=== PATIENT | female | born 1950 | race Caucasian/White ===

== ENCOUNTER 2017-04-19 12:23 | Inpatient (IN) | payer BC, OTHER ==
[~2017-04-19] VITALS: Ht 177.8 cm; Wt 86.0 kg
[2017-04-19] VITALS (7 sets, daily range): BP systolic 98–122; BP diastolic 69–86
[~2017-04-19 12:23] MED LIST: ASPIR-LOW81 MG PO; ATORVASTATIN CA80 MG PO; Aspirin PO; Ativan PO; BACLOFEN10 MG PO; CLONAZEPAM1 MG PO; CLONAZEPAM2 MG PO; CYMBALTA60 MG PO; Cymbalta PO; DILAUDID2 MG PO; DOXEPIN HCL25 MG PO; ECOTRIN325 MG PO; KLONOPIN1 MG PO; LATANOPROST2.5 ML BOTH EYES; LIPITOR80 MG PO; LYRICA PO; LYRICA100 MG PO; LYRICA200 MG PO; Levothroid,Synthroid PO; Lipitor PO; Lovaza PO; METHADONE10 MG PO; METOPROLOL SUCC50 MG PO; Methadone HCl PO; Neurontin PO; PLAVIX75 MG PO; Plavix PO; SINEQUAN25 MG PO; SINEQUAN50 MG PO; SYNTHROID125 MCG PO; SYNTHROID150 MCG PO; TOPROL XL50 MG PO; Toprol XL PO; VITAMIN D2000 UNI1 PO; VITAMIN E400 UNIT PO; Vancomycin Pulse Dos IV; WELLBUTRIN100 MG PO; Wellbutrin PO; ZANAFLEX4 MG PO
[2017-04-19 12:36] LABS: CREATININE 1.2 mg/dL (0.6-1.3); POTASSIUM 5.3 mEq/L (3.7-5.4)
[2017-04-19 12:59] LABS: BASE EXCESS 1.4 mEq/L (-3 to +3); BICARBONATE 24.7 mEq/L (22-26); CARBOXY HGB 1.4 % (0-5); METHEMOGLOBIN 1.4 % (0-1.5); PO2 400 mm Hg (80-100)
[2017-04-19 13:00] LABS: PCO2 34 mm Hg (35-45); pH 7.47 (7.35-7.45)
[2017-04-19 13:01] LABS: COMMENTS - BLOOD GASES C+A+; DEVICE VENT; FI02 100 %; MECHANICAL RATE 18 resp/min; MODE AC; PEEP 8 CM/H20; SITE RR; TIDAL VOLUME 500 ML; TOTAL RESP RATE 18 resp/min
[2017-04-19 13:25] LABS: TROP-I INTERPRETATION POSITIVE; TROPONIN-I 1.43 ng/mL (0.0-0.30)
[2017-04-19 13:26] LABS: EOSINOPHIL (%) 0.2 % (0-5); HEMATOCRIT 38.8 % (36.0-46.0); IMMATURE GRANULOCYTE (%) 0.3 % (0.0-0.7); INSTRUMENT ABS NEUTROPHIL CT 10.9 K/uL; LYMPHOCYTE COUNT 0.7 K/uL (1.0-2.8); MCH 27.7 PG (29.0-34.0); MCV 86.6 FL (83-99); MONOCYTE (%) 4.7 % (3-12); MONOCYTE COUNT 0.6 K/uL (0-0.8); NEUTROPHIL COUNT 10.9 K/uL (1.8-6.4); RED BLOOD COUNT 4.48 M/uL (3.80-5.20); WHITE BLOOD COUNT 12.2 K/uL (4.1-10.2)
[2017-04-19 13:33] LABS: INTER. NORMALIZED RATIO 1.1
[2017-04-19 13:35] LABS: PTT 23.3 SEC (25-37)
[2017-04-19 13:37] LABS: CHLORIDE 104 mEq/L (99-109); POTASSIUM 3.6 mEq/L (3.7-5.4); SODIUM 139 mEq/L (136-147)
[2017-04-19 13:39] LABS: GLUCOSE 104 mg/dL (70-99)
[2017-04-19 13:40] LABS: ANION GAP 12 MEQ/L (2-14)
[2017-04-19 13:41] LABS: TOTAL BILIRUBIN 0.5 mg/dL (0.0-1.0)
[2017-04-19 13:43] LABS: ALKALINE PHOSPHATASE 158 IU/L (3-129); GFR ESTIMATE (CALCULATED) 53 mL/min/
[2017-04-19 13:44] LABS: UREA NITROGEN (BUN) 16 mg/dL (9-23)
[2017-04-19 13:46] LABS: CREATINE KINASE 443 IU/L (1-294); TOTAL CK 443 IU/L (1-294)
[2017-04-19 13:52] LABS: CK-MB 30.3 ng/mL (0.0-4.9)
[2017-04-19 14:20] LABS: MEAN PLAT.VOLUME 8.6 uM^3 (9.5-12.4); PLAT.SUFFICIENCY ADEQUATE; PLATELET COUNT 199 K/uL (156-360)
[2017-04-19] MEDS ORDERED: NITROSTAT0.4 MG SL (15:09)
[2017-04-19] MEDS ORDERED: ENDOCET 5-3251 EACH PO (15:09)
[2017-04-19] MEDS ORDERED: DULCOLAX5 MG PO (15:16)
[2017-04-19 17:35] LABS: METH RESISTANT S AUREUS PCR NEGATIVE (NEGATIVE)
[2017-04-19 18:18] LABS: PROBE CHECK PASS; SPECIMEN PROCESSING CONTROL PASS
[2017-04-19 18:37] LABS: ADD MIUA? YES; BILIRUBIN NEGATIVE; BLOOD SMALL; GLUCOSE (STRIP) NEGATIVE; KETONES NEGATIVE; LEUKOCYTES NEGATIVE; NITRITE NEGATIVE; PROTEIN (STRIP) NEGATIVE; UROBILINOGEN 0.2 MG/DL (0.2-1.0)
[2017-04-19 18:41] LABS: COLOR YELLOW ((YELLOW))
[2017-04-19 18:44] LABS: SPECIFIC GRAVITY > 1.080 (1.000-1.030)
[2017-04-19 18:55] LABS: CRYSTALS PRESENT
[2017-04-19 18:56] LABS: AMORPHOUS URATES CRYSTALS 2+; BACTERIA RARE /HPF; CASTS NONE SEEN /LPF; EPITHELIAL CELLS NONE SEEN /HPF; MUCUS NONE SEEN /LPF; RED BLOOD CELLS NONE SEEN /HPF (0-5); WHITE BLOOD CELLS NONE SEEN /HPF (0-5)
[2017-04-19 19:06] LABS: TROPONIN-I 4.24 ng/mL (0.0-0.30)
[2017-04-19 19:07] LABS: TROP-I INTERPRETATION POSITIVE
[2017-04-20] VITALS (20 sets, daily range): BP systolic 82–138; BP diastolic 57–84
[2017-04-20 01:03] LABS: TROP-I INTERPRETATION POSITIVE
[2017-04-20 01:05] LABS: TROPONIN-I 9.91 ng/mL (0.0-0.30)
[2017-04-20 06:56] LABS: TROP-I INTERPRETATION POSITIVE; TROPONIN-I 6.11 ng/mL (0.0-0.30)
[2017-04-20 07:02] LABS: ANION GAP 8 MEQ/L (2-14); CHLORIDE 103 MEQ/L (99-109); GFR ESTIMATE (CALCULATED) > 59 mL/min/; GLUCOSE 114 mg/dL (70-99); POTASSIUM 3.8 MEQ/L (3.7-5.4); SAMPLE HEMOLYSIS CHECK 0; SAMPLE ICTERIC CHECK 0; SAMPLE LIPEMIA CHECK 0; SODIUM 139 MEQ/L (136-147); UREA NITROGEN (BUN) 14 mg/dL (9-23)
[2017-04-21] VITALS (19 sets, daily range): BP systolic 91–150; BP diastolic 53–107
[2017-04-21 05:59] LABS: TROP-I INTERPRETATION POSITIVE; TROPONIN-I 2.79 ng/mL (0.0-0.30)
[2017-04-21 06:21] LABS: ANION GAP 8 MEQ/L (2-14); CHLORIDE 107 MEQ/L (99-109); GFR ESTIMATE (CALCULATED) > 59 mL/min/; POTASSIUM 3.3 MEQ/L (3.7-5.4); SAMPLE HEMOLYSIS CHECK 0; SAMPLE ICTERIC CHECK 0; SAMPLE LIPEMIA CHECK 0; SODIUM 141 MEQ/L (136-147); UREA NITROGEN (BUN) 7 mg/dL (9-23)
[2017-04-21 06:22] LABS: GLUCOSE 73 mg/dL (70-99)
[2017-04-22] VITALS (17 sets, daily range): BP systolic 117–178; BP diastolic 60–97
[2017-04-22 05:46] LABS: EOSINOPHIL (%) 2.4 % (0-5); EOSINOPHIL COUNT 0.1 K/uL (0-0.3); HEMATOCRIT 32.3 % (36.0-46.0); IMMATURE GRANULOCYTE (%) 0.3 % (0.0-0.7); INSTRUMENT ABS NEUTROPHIL CT 4.4 K/uL; LYMPHOCYTE COUNT 0.8 K/uL (1.0-2.8); MCH 27.4 PG (29.0-34.0); MCHC 31.3 G/DL (30.0-36.0); MCV 87.8 FL (83-99); MEAN PLAT.VOLUME 8.6 uM^3 (9.5-12.4); MONOCYTE (%) 8.7 % (3-12); MONOCYTE COUNT 0.5 K/uL (0-0.8); NEUTROPHIL (%) 74.9 % (45-76); NEUTROPHIL COUNT 4.4 K/uL (1.8-6.4); PLATELET COUNT 171 K/uL (156-360); RBC DIS.WIDTH-CV 14.4 % (11.8-14.6); RBC DIS.WIDTH-SD 45.8 % (39-53); RED BLOOD COUNT 3.68 M/uL (3.80-5.20); WHITE BLOOD COUNT 5.9 K/uL (4.1-10.2)
[2017-04-22 06:09] LABS: ANION GAP 7 MEQ/L (2-14); CHLORIDE 107 MEQ/L (99-109); GFR ESTIMATE (CALCULATED) > 59 mL/min/; GLUCOSE 71 mg/dL (70-99); POTASSIUM 3.7 MEQ/L (3.7-5.4); SAMPLE HEMOLYSIS CHECK 0; SAMPLE ICTERIC CHECK 0; SAMPLE LIPEMIA CHECK 0; SODIUM 142 MEQ/L (136-147); UREA NITROGEN (BUN) 5 mg/dL (9-23)
[2017-04-23 03:44] VITALS: BP 144/69
[2017-04-23 07:46] VITALS: BP 150/72
[2017-04-23 15:53] VITALS: BP 145/77
== END 2017-04-23 17:25 | disposition home health service (06) | DRG 917 ==
LOC: EME 12:23 → 4WEST 14:33 → EDOF 14:33 → ENRESERV 14:34 → 4WEST 15:32 → ENRESERV 04-22 14:10 → 3EAST 04-22 16:03
PROVIDERS: Emergency Medicine; Internal Medicine Critical Care Medicine; Specialist
PROC: 0BH17EZ Insertion of Endotracheal Airway into Trachea, Via Natural or Artificial Opening (ICD-10-PCS; principal; 2017-04-19)
PROC: 5A1935Z Respiratory Ventilation, Less than 24 Consecutive Hours (ICD-10-PCS; principal; 2017-04-19)
DX: T40.2X1A Poisoning by other opioids, accidental (unintentional), initial encounter (principal); J96.01 Acute respiratory failure with hypoxia; I21.A1 Myocardial infarction type 2; E87.6 Hypokalemia; I95.9 Hypotension, unspecified; R41.82 Altered mental status, unspecified; G89.29 Other chronic pain; G24.3 Spasmodic torticollis; M54.9 Dorsalgia, unspecified; J44.9 Chronic obstructive pulmonary disease, unspecified; E03.9 Hypothyroidism, unspecified; E78.00 Pure hypercholesterolemia, unspecified; E78.5 Hyperlipidemia, unspecified; G62.9 Polyneuropathy, unspecified; I10 Essential (primary) hypertension; I25.10 Atherosclerotic heart disease of native coronary artery without angina pectoris; I73.9 Peripheral vascular disease, unspecified; Z79.891 Long term (current) use of opiate analgesic; Z82.49 Family history of ischemic heart disease and other diseases of the circulatory system; Z87.891 Personal history of nicotine dependence; Z91.040 Latex allergy status; Z95.5 Presence of coronary angioplasty implant and graft; Z86.14 Personal history of Methicillin resistant Staphylococcus aureus infection; Z86.718 Personal history of other venous thrombosis and embolism
CPT/HCPCS: 36600; 70450; 71010; 71275; 80047; 80048; 80053; 81003; 82550; 82550 91; 82553; 82803; 83605; 84484; 85025; 85610; 85730; 87040; 87070; 87077; 87147; 87186; 87205; 87641; 90686; 93005; 93306; 94002; 94799; 97530 GO; 99281; 99285; J1650; J2310; J2543; J2704; J7030

== ENCOUNTER 2017-06-02 17:45 | Emergency (ER) | payer OTHER ==
[~2017-06-02] VITALS: Ht 177.8 cm; Wt 78.2 kg
[~2017-06-02 17:45] MED LIST changes: +DULCOLAX5 MG PO; +ENDOCET 5-3251 EACH PO; +NITROSTAT0.4 MG SL
[2017-06-02 19:40] LABS: BASOPHIL (%) 0.6 % (0-1); EOSINOPHIL (%) 1.9 % (0-5); EOSINOPHIL COUNT 0.1 K/uL (0-0.3); HEMATOCRIT 43.7 % (36.0-46.0); HEMOGLOBIN 14.2 G/DL (11.9-15.5); IMMATURE GRANULOCYTE (%) 0.2 % (0.0-0.7); LYMPHOCYTE COUNT 1.6 K/uL (1.0-2.8); MCH 27.5 PG (29.0-34.0); MCHC 32.5 G/DL (30.0-36.0); MCV 84.7 FL (83-99); MONOCYTE COUNT 0.5 K/uL (0-0.8); NEUTROPHIL (%) 63.3 % (45-76); NEUTROPHIL COUNT 3.9 K/uL (1.8-6.4); PLATELET COUNT 209 K/uL (156-360); RBC DIS.WIDTH-CV 14.7 % (11.8-14.6); RBC DIS.WIDTH-SD 45.1 % (39-53); RED BLOOD COUNT 5.16 M/uL (3.80-5.20); WHITE BLOOD COUNT 6.2 K/uL (4.1-10.2)
[2017-06-02 19:44] LABS: ALBUMIN 4.3 g/dL (3.2-4.8); CHLORIDE 103 mEq/L (99-109); POTASSIUM 4.1 mEq/L (3.7-5.4); SODIUM 138 mEq/L (136-147)
[2017-06-02 19:47] LABS: GLUCOSE 80 mg/dL (70-99); TOTAL PROTEIN 8.3 g/dL (6.4-8.3)
[2017-06-02 19:49] LABS: TOTAL BILIRUBIN 0.8 mg/dL (0.0-1.0)
[2017-06-02 19:50] LABS: ALKALINE PHOSPHATASE 130 IU/L (3-129); SERUM ETHYL ALCOHOL < 10 mg/dL
[2017-06-02 19:51] LABS: CREATININE 0.8 mg/dL (0.6-1.3); GFR ESTIMATE (CALCULATED) > 59 mL/min/
[2017-06-02 19:51] LABS: APPEARANCE SL.HAZY ((CLEAR)); BILIRUBIN NEGATIVE; BLOOD SMALL; COLOR YELLOW ((YELLOW)); GLUCOSE (STRIP) NEGATIVE; KETONES NEGATIVE; LEUKOCYTES SMALL; NITRITE NEGATIVE; PROTEIN (STRIP) NEGATIVE; SPECIFIC GRAVITY 1.004 (1.000-1.030); UROBILINOGEN 0.2 MG/DL (0.2-1.0)
[2017-06-02 19:52] LABS: AST (GOT) 30 IU/L (2-34); UREA NITROGEN (BUN) 9 mg/dL (9-23)
[2017-06-02 19:53] LABS: ALT (GPT) 18 IU/L (3-49)
[2017-06-02 20:08] LABS: AMPHETAMINE NEGATIVE (500 ng/mL); BARBITURATES NEGATIVE (200 ng/mL); BENZODIAZEPINES NEGATIVE (150 ng/mL); BUPRENORPHINE NEGATIVE (10 ng/mL); COCAINE NEGATIVE (150 ng/mL); METHADONE PRESUMPTIVE POSITIVE (200 ng/mL); METHAMPHETAMINE NEGATIVE (500 ng/mL); OPIATES (MORPHINE) NEGATIVE (100 ng/mL); OXYCODONE NEGATIVE (100 ng/mL); PHENCYCLIDINE NEGATIVE (25 ng/mL); PROPOXYPHENE NEGATIVE (300 ng/mL); THC CANNABINOIDS NEGATIVE (50 ng/mL); TRICYCLIC ANTIDEPRESSANTS NEGATIVE (300 ng/mL)
[2017-06-02 20:13] LABS: BACTERIA RARE /HPF; EPITHELIAL CELLS 2+ /HPF; MUCUS TRACE /LPF; RED BLOOD CELLS 0-5 /HPF (0-5); UCUL ADDED? YES
[2017-06-02 22:10] VITALS: BP 133/71
== END 2017-06-02 22:11 | disposition home or self-care (01) ==
LOC: EME 17:45
PROVIDERS: Emergency Medicine
DX: R44.2 Other hallucinations (principal); I25.10 Atherosclerotic heart disease of native coronary artery without angina pectoris; I10 Essential (primary) hypertension; E78.5 Hyperlipidemia, unspecified; E03.9 Hypothyroidism, unspecified; J44.9 Chronic obstructive pulmonary disease, unspecified; I73.9 Peripheral vascular disease, unspecified; G89.29 Other chronic pain; M43.6 Torticollis; F32.9 Major depressive disorder, single episode, unspecified; Z79.82 Long term (current) use of aspirin; Z87.891 Personal history of nicotine dependence; Z86.718 Personal history of other venous thrombosis and embolism; Z95.828 Presence of other vascular implants and grafts; Z95.5 Presence of coronary angioplasty implant and graft; Z85.9 Personal history of malignant neoplasm, unspecified; Z91.040 Latex allergy status
CPT/HCPCS: 80053; 81003; 85025; 87086 GA; 90839; 99281; 99285; G0480